=== PATIENT | female | born 1995 | race Caucasian/White ===

== ENCOUNTER 2017-09-05 13:40 | Emergency (ER) | payer OTHER ==
[~2017-09-05] VITALS: Ht 165.1 cm; Wt 70.8 kg
[~2017-09-05 13:40] MED LIST: ALBU8.5H8 INH; ASPI81TA50 PO
[2017-09-05 13:53] VITALS: BP 102/86
--- NOTE | 2017-09-05 14:07 | PHYS DOC ---
Past History Past Medical History: Anxiety, Asthma, Other Past Surgical History: No Surgical History Smoking: Less than 1pk/day Alcohol Use: Occasionally Drug Use: Marijuana Adult General Chief Complaint Chief Complaint: VOMITING IN [place] Patient is a [22] year old [female] who presents with [vomiting in .] with LMP of July 17 with 7 weeks of gestation complaining of 4 episodes of nonbloody vomiting/day for the last 2 weeks after she had positive clinic test. Patient complaining of increasing vomiting today with having 20 episodes of vomiting and generalized weakness without fever and chills , vaginal bleeding or discharge, abdominal pain, urinary symptoms, sick contact. Review of Systems Review of Systems Constitutional: Denies fever or chills [] Eyes: Denies change in visual acuity, redness, or eye pain [] HENT: Denies nasal congestion or sore throat [] Respiratory: Denies cough or shortness of breath [] Cardiovascular: No additional information not addressed in HPI [] GI: Denies abdominal pain, bloody stools or diarrhea, reports nausea and vomiting [] : Denies dysuria or hematuria, reports [] Musculoskeletal: Denies back pain or joint pain [] Integument: Denies rash or skin lesions [] Neurologic: Denies headache, focal weakness or sensory changes [] Endocrine: Denies polyuria or polydipsia [] All other systems were reviewed and found to be within normal limits, except as documented in this note. Allergies Allergies Allergies Coded Allergies Type Severity Reaction Last Updated Verified No Known Drug Allergies 11/07/13 No Physical Exam Physical Exam Constitutional: Well developed, well nourished, mild distress, non-toxic appearance. [] HENT: Normocephalic, atraumatic, bilateral external ears normal, oropharynx moist, no oral exudates, nose normal. [] Eyes: PERRLA, EOMI, conjunctiva normal, no discharge. [] Neck: Normal range of motion, no tenderness, supple, no stridor. [] Cardiovascular:Heart rate regular rhythm, no murmur [] Lungs & Thorax: Bilateral breath sounds clear to auscultation [] Abdomen: Bowel sounds normal, soft, no tenderness, no masses, no pulsatile masses. [] Skin: Warm, dry, no erythema, no rash. [] Back: No tenderness, no CVA tenderness. [] Extremities: No tenderness, no cyanosis, no clubbing, ROM intact, no edema. [] Neurologic: Alert and oriented X 3, normal motor function, normal sensory function, no focal deficits noted. [] Psychologic: Affect normal, judgement normal, mood normal. [] EKG EKG [] Radiology/Procedures Radiology/Procedures [] Course & Med Decision Making Course & Med Decision Making Pertinent Labs reviewed. (See chart for details) [Patient felt better after IV fluid and Zofran and tolerated oral intake.] Dragon Disclaimer Dragon Disclaimer This electronic medical record was generated, in whole or in part, using a voice recognition dictation system. Departure Departure: Impression: Primary Impression: Hyperemesis gravidarum Disposition: HOME, SELF-CARE (At 1524) Condition: IMPROVED Referrals: RHEA DESAI MD (PCP) Patient Instructions: Nausea and Vomiting Additional Instructions: Follow with your DIRECTOR OF VIDEO ANALYTICS in 3-5 days Return as needed Scripts Ondansetron (ZOFRAN ODT) 4 Mg Tab.rapdis 1 TAB SL Q8HRS, #24 TAB Prov: RAHEEL VINES MD 09/05/17 RAHEEL VINES MD Sep 05, 2017 14:07
[2017-09-05] MEDS ORDERED: ONDANSETRON PF 4 MG/2 ML VIAL. ONE (14:09)
[2017-09-05] MEDS ORDERED: IV NORMAL SALINE 1,000ML 1,000 ML IV ONE (14:15)
[2017-09-05] MEDS ORDERED: ONDANSETRON PF 4 MG/2 ML VIAL. IV ONE (14:15)
[2017-09-05 14:18] LABS: BASO % 0 % (0-3); EOS % 0 % (0-3); HEMATOCRIT 41.3 % (36.0-47.0); HEMOGLOBIN 14.5 g/dL (12.0-15.5); LYMPH # 0.7 x10^3/uL (1.0-4.8); LYMPH % 7 % (24-48); MEAN CORPUSCULAR HEMOGLOBIN 31 pg (25-35); MEAN CORPUSCULAR HGB CONC 35 g/dL (31-37); MEAN CORPUSCULAR VOLUME 89 fL (79-100); MONO # 0.4 x10^3/uL (0.0-1.1); MONO % 4 % (0-9); NEUT # 9.2 x10^3uL (1.8-7.7); NEUT % 90 % (31-73); PLATELET COUNT 203 x10^3/uL (140-400); RED BLOOD COUNT 4.63 x10^6/uL (3.50-5.40); RED CELL DISTRIBUTION WIDTH 12.1 % (11.5-14.5); WHITE BLOOD COUNT 10.3 x10^3/uL (4.0-11.0)
[2017-09-05 14:24] LABS: BILIRUBIN,URINE SMALL (NEG); CLARITY,URINE CLEAR; COLOR,URINE YELLOW; GLUCOSE,URINE NEG (NEG)
[2017-09-05 14:25] LABS: BACTERIA,URINE MANY /HPF (0-FEW); NITRITE,URINE NEG (NEG); RBC,URINE RARE /HPF (0-2); SQUAMOUS EPITHELIAL CELL,UR FEW /LPF; UROBILINOGEN,URINE 2 mg/dL (0.2 mg/dL); WBC,URINE OCC /HPF (0-4)
[2017-09-05 14:31] LABS: ALBUMIN/GLOBULIN RATIO 1.2 (1.0-1.7); CALCIUM 9.3 mg/dL (8.5-10.1); CREATININE 0.7 mg/dL (0.6-1.0); GFR 103.7; TOTAL BILIRUBIN 0.6 mg/dL (0.2-1.0); TOTAL PROTEIN 7.3 g/dL (6.4-8.2)
[2017-09-05] MEDS ORDERED: ONDA4TAB10 SL (15:26)
== END 2017-09-05 15:58 | disposition home or self-care (01) ==
LOC: ER 13:40
DX: O21.0 Mild hyperemesis gravidarum (principal); O99.511 Diseases of the respiratory system complicating pregnancy, first trimester; O99.341 Other mental disorders complicating pregnancy, first trimester; O99.331 Smoking (tobacco) complicating pregnancy, first trimester; O99.321 Drug use complicating pregnancy, first trimester; J45.909 Unspecified asthma, uncomplicated; F41.9 Anxiety disorder, unspecified; F12.10 Cannabis abuse, uncomplicated; Z3A.01 Less than 8 weeks gestation of pregnancy
CPT/HCPCS: 36415; 80053; 81001; 85025; 87086; 96361; 96374; 99284; J2405; J7030

== ENCOUNTER → 2020-07-03 | Outpatient (CLI) | payer OTHER ==
[~2020-07-03] MED LIST changes: +ALBU2.5V8 INH; -ALBU8.5H8 INH; +ONDA4TAB10 SL
--- NOTE | 2020-07-04 10:27 | RAD ---
Examination: BREAST LEFT History: BREAST MASS reported in the recent past but not currently felt by the patient. The patient had stopped breast-feeding in April. Comparison/Correlation: None Findings: Ultrasound examination of the left breast was performed at the upper inner and retroareolar region. Left axilla was also imaged. The site of the previously present palpable abnormality of the left breast in the 1:00 to 2:00 region is unremarkable with no mass, cyst, or other suspicious finding. Ultrasound image and retroperitoneal region demonstrates complicated cystic structures. One of these measures 0.9 cm x 0.4 cm tall by 0.7 cm. A smaller complicated cystic structure which is present. Proximity to this larger structure is mildly lobulated and measures 0.7 cm by approximately 0.6 cm by 0.25 cm tall. There is no flow identified involving these structures. Dilated duct is present in the left anterior retroareolar lesion. Impression: Category 3-probably benign. Clinical management of the reported palpable abnormality is recommended. Six-month follow-up ultrasound examination of the common kidney cyst and dilated duct in the left anterior retroareolar region is recommended. Electronically signed by: Johnny Love MD (07/04/2020 10:24 AM) [id number]
== END | disposition home or self-care (01) ==
LOC: US 13:24
PROVIDERS: ATTEND Obstetrics & Gynecology
DX: N60.02 Solitary cyst of left breast (principal)
CPT/HCPCS: 76641

== ENCOUNTER → 2020-07-27 | Outpatient (CLI) | payer OTHER ==
--- NOTE | 2020-08-02 16:48 | RAD ---
Right breast ultrasound INDICATION: Right retroareolar tenderness in a 25-year-old woman. COMPARISON: Left breast ultrasound of 07/03/2020. TECHNIQUE: Grayscale ultrasound imaging of the right breast was performed circumferentially as well as targeted ultrasound of the subareolar region and ultrasound of the right axilla. FINDINGS: Sonographically dense fibrous breast tissue. No mass, architectural distortion or fluid collection is identified. No duct ectasia seen. The nipple areolar complex and skin are unremarkable. There is no adenopathy in the right axilla on ultrasound. IMPRESSION: Negative right breast ultrasound. No specific findings to explain retroareolar tenderness which is therefore recommended for clinical management (including biopsy of any clinically suspicious findings if present). In the absence of any clinically suspicious findings, age-appropriate routine mammographic screening recommended starting at age 40. BI-RADS Category 1 Negative Electronically signed by: Chay Sow MD (08/02/2020 4:45 PM) [id number]
== END ==
LOC: US 14:25
PROVIDERS: ATTEND Obstetrics & Gynecology
DX: N64.4 Mastodynia (principal)
CPT/HCPCS: 76641

== ENCOUNTER → 2020-10-12 | Outpatient (CLI) | payer OTHER ==
--- NOTE | 2020-10-12 13:46 | RAD ---
EXAM: Pelvic sonogram. HISTORY: IUD strings missing.. TECHNIQUE: Sonographic imaging of the pelvis was performed. COMPARISON: None. FINDINGS: The uterus measures 9.8 x 6.4 x 4.8 cm. The endometrial stripe measures 2.3 mm in thickness . The ovaries are normal in size and demonstrate normal blood flow. There is a dominant 1.4 cm left o varian follicle. There is an IUD in expected position within the endometrial cavity. IMPRESSION: 1. IUD in expected position within the endometrial cavity. 2. 1.4 cm physiologic dominant left ovarian follicle. Electronically signed by: Johnna Malik MD (10/12/2020 1:44 PM) [id number]
== END ==
LOC: US 12:52
PROVIDERS: ATTEND Obstetrics & Gynecology
DX: N83.02 Follicular cyst of left ovary (principal); N94.10 Unspecified dyspareunia; T84.84XA Pain due to internal orthopedic prosthetic devices, implants and grafts, initial encounter
CPT/HCPCS: 76856

== ENCOUNTER → 2020-11-08 | Outpatient (CLI) | payer OTHER ==
--- NOTE | 2020-11-08 11:14 | RAD ---
Pelvic ultrasound INDICATION: Pelvic pain TECHNIQUE: Grayscale and color Doppler imaging of the pelvis was performed. FINDINGS: The uterus measures 9.8 x 7.4 x 4.6 cm. An IUD is present in the uterus. The endometrial stripe measures 2.5 mm. The right ovary measures 3.5 x 2.4 x 1.6 cm and demonstrates normal blood flow. The left ovary measures 3.4 x 2.5 x 2.5 cm and demonstrates normal blood flow. Small amount of pelvic free fluid is present. IMPRESSION: Normal transabdominal and endovaginal pelvic ultrasound with IUD in place. Electronically signed by: Chay Sow MD (11/08/2020 11:12 AM) [id number]
== END ==
LOC: US 07:54
PROVIDERS: ATTEND Obstetrics & Gynecology
DX: R10.2 Pelvic and perineal pain (principal); Z97.5 Presence of (intrauterine) contraceptive device
CPT/HCPCS: 76856

== ENCOUNTER → 2021-02-13 | Outpatient (CLI) | payer OTHER ==
--- NOTE | 2021-02-13 14:39 | RAD ---
DATE: February 13, 2021 EXAM: DIGITAL DIAGNOSTIC BILATERAL, BREAST BILATERAL HISTORY: History of previous breast-feeding. Persistent nipple discharge. Right breast pain. No palpable lump. Family history of breast cancer. COMPARISON: No previous mammogram. Baseline study. Previous sonogram dated July 03, 2020 on the left side and July 27, 2020 on the right side. This study was interpreted with the benefit of Computerized Aided Detection (CAD). FINDINGS: Breast Density: HETERO The breast parenchyma is heterogenously dense, which could reduce sensitivity of mammography. Breast parenchyma level C.. There are no dominant suspicious masses, suspicious microcalcifications or evidence of architectural distortion. RIGHT BREAST SONOGRAPHY: High-resolution sonography of the retroareolar region of the right breast and the area of pain of the 7:00 position of the right breast was performed. There is a mildly dilated duct at the 7:00 position 4 cm from the nipple. This was seen previously and is unchanged. Mild ductal ectasia is seen in the retroareolar region of the right breast. LEFT BREAST SONOGRAPHY: High-resolution sonography of the retroareolar region of the left breast was performed. Again seen is a cyst measuring 10 mm in size with smooth borders. This is unchanged. No abnormal color Doppler flow is seen within it. Mild ductal ectasia is seen in the retroareolar region of the left breast. IMPRESSION: Benign findings of both breasts. Recommend screening mammography at age 40 or earlier if clinically needed. Given the patient's family history of breast cancer, screening mammogram may be performed at age 35. If the patient's nipple discharge persists or becomes bloody, then earlier workup could be performed as well as clinically needed. BI-RADS CATEGORY: 2 BENIGN FINDING RECOMMENDED FOLLOW-UP: CLIN FOLLOW UP IMAGING CLINICALLY INDICATED PQRS compliance statement: Patient information was entered into a reminder system with a target due date February 14, 2029 for the next mammogram. Mammography is a sensitive method for finding small breast cancers, but it does not detect them all and is not a substitute for careful clinical examination. A negative mammogram does not negate a clinically suspicious finding and should not result in delay in biopsying a clinically suspicious abnormality. "Our facility is accredited by the [employer] Mammography Program." The patient's breast density may affect the ability of mammography to detect breast cancer. There are 4 categories of breast density, A, B, C and D. Breast density A means that most of the breast tissue is replaced with adipose tissue and therefore is not dense. Breast density B means that the breast tissue is mildly dense and scattered. Breast density C means that the breast tissue is heterogeneously dense. Breast density D means that the breast tissue is very dense. Breast densities especially C and D may decrease the sensitivity of mammography to detect breast cancer. Therefore, the patient may benefit from 3-D breast mammography (3D breast tomography) as a part of their screening mammogram. Insurance may or may not pay for this additional imaging. The patient's breast density based on today's mammogram is category C.
== END ==
LOC: US 13:12
PROVIDERS: ATTEND Obstetrics & Gynecology
DX: N60.41 Mammary duct ectasia of right breast (principal); N64.52 Nipple discharge
CPT/HCPCS: 76641; 77066

== ENCOUNTER 2021-05-15 08:41 | Emergency (ER) | payer OTHER ==
[~2021-05-15] VITALS: Ht 165.1 cm; Wt 79.0 kg
[2021-05-15 09:00] VITALS: BP 130/77
--- NOTE | 2021-05-15 09:19 | RAD ---
XR CHEST 1V History: Reason: cough / Spl. Instructions: / History: Comparison: None. Findings: No consolidation or pleural effusion. Normal heart size. No pneumothorax. Impression: 1. No acute cardiopulmonary process. Electronically signed by: Prince Marley DO (05/15/2021 9:16 AM) [id number]
--- NOTE | 2021-05-15 09:31 | PHYS DOC ---
Past History Past Medical History: Anxiety, Other Additional Past Medical Histor: Chiari malformation Past Surgical History: Tubal ligation Smoking: Less than 1pk/day Alcohol Use: None Drug Use: None General Adult EDM: Chief Complaint: SORE THROAT HPI: HPI: Patient is a 26-year-old female coming in with congestion, nonproductive cough, fevers, throat pain, and rhinorrhea for the past 2 days. Patient states she has been vaccinated against COVID-19. No known sick contacts. History of tonsillectomy. Review of Systems: Review of Systems: All other systems within normal limits except for as noted in the HPI Allergies: Allergies: Allergies Coded Allergies Type Severity Reaction Last Updated Verified No Known Drug Allergies 11/07/13 No Physical Exam: PE: Constitutional: Well developed, well nourished, no acute distress, non-toxic appearance. [] HENT: Normocephalic, atraumatic, bilateral external ears normal, nose normal. Erythema posterior pharynx with exudates on the left. [] Eyes: PERRLA, conjunctiva normal, no discharge. [] Neck: No rigidity, supple, no stridor. [] Cardiovascular: Regular rate and rhythm, brisk cap refill [] Lungs & Thorax: Non labored symmetric respirations, no tachypnea or respiratory distress [] Abdomen: Soft, nondistended. Skin: Warm, dry, no erythema, no rash. [] Back: Unremarkable Extremities: No deformities, range of motion grossly intact, no lower extremity edema [] Neurologic: Alert and oriented X 3, no focal deficits noted. [] Psychologic: Affect normal, judgement normal, mood normal. [] Current Patient Data: Vital Signs: Vital Signs Date Time Temp Pulse Resp B/P (MAP) Pulse Ox O2 Delivery O2 Flow Rate FiO2 05/15/21 09:00 100.9 110 18 130/77 98 Room Air EKG: EKG: [] Radiology/Procedures: Radiology/Procedures: [address] [address] IMAGING REPORT Signed PATIENT: VILMA MIKE ACCOUNT: [id number] : 1995 LOCATION: ER AGE: 26 SEX: F EXAM STATUS: PRE ER ORD. PHYSICIAN: BHARTI LOVE MD REASON: cough PROCEDURE: CHEST AP ONLY XR CHEST 1V History: Reason: cough / Spl. Instructions: / History: Comparison: None. Findings: No consolidation or pleural effusion. Normal heart size. No pneumothorax. Impression: 1. No acute cardiopulmonary process. Electronically signed by: Prince Marley DO (05/15/2021 9:16 AM) [id number] DICTATED AND SIGNED BY: PRINCE MARLEY DO DATE: 05/15/21915 CC: BHARTI LOVE MD; YANICK ZAZUETA ~MTH0 0 [] Heart Score: C/O Chest Pain: No Risk Factors: Risk Factors: DM, Current or recent (<one month) smoker, HTN, HLP, family history of CAD, obesity. Risk Scores: Score 0 - 3: 2.5% MACE over next 6 weeks - Discharge Home Score 4 - 6: 20.3% MACE over next 6 weeks - Admit for Clinical Observation Score 7 - 10: 72.7% MACE over next 6 weeks - Early Invasive Strategies Course & Med Decision Making: Course & Med Decision Making Pertinent Labs and Imaging studies reviewed. (See chart for details) [] Dragon Disclaimer: Dragon Disclaimer: This electronic medical record was generated, in whole or in part, using a voice recognition dictation system. Departure Departure: Impression: Primary Impression: Pharyngitis Disposition: 02 SHORT TERM HOSPITAL Condition: STABLE Referrals: YANICK ZAZUETA (PCP) Patient Instructions: Viral Pharyngitis BHARTI LOVE MD May 15, 2021 09:31
[2021-05-15] MEDS: DEXAMETHASONE SOD PHOS 10 MG/ML VIAL. PO ONE (10:00)
== END 2021-05-15 10:04 | disposition short-term general hospital (02) ==
LOC: ER 08:41
DX: J02.9 Acute pharyngitis, unspecified (principal); F17.200 Nicotine dependence, unspecified, uncomplicated; Z20.822 Contact with and (suspected) exposure to COVID-19
CPT/HCPCS: 71045; 87070; 87880; 99285; C9803; J1100; U0003